=== PATIENT | male | born 1975 | race Two or more races ===

== ENCOUNTER 2021-08-08 12:39 | Emergency (ER) | payer OTHER ==
[~2021-08-08] VITALS: Ht 170.2 cm; Wt 102.1 kg
[2021-08-08] MEDS ORDERED: GLUMETZA1000 MG PO (13:14)
[2021-08-08] MEDS ORDERED: ZITHROMAX500 MG PO (14:43)
== END 2021-08-08 15:26 | disposition home or self-care (01) ==
LOC: ER 12:39
DX: E11.65 Type 2 diabetes mellitus with hyperglycemia (principal); Z79.4 Long term (current) use of insulin; A49.3 Mycoplasma infection, unspecified site; Z88.1 Allergy status to other antibiotic agents

== ENCOUNTER 2021-08-14 08:56 | Outpatient (CLI) | payer OTHER ==
[~2021-08-14 08:56] MED LIST: GLUMETZA1000 MG PO; ZITHROMAX500 MG PO
== END 2021-08-14 09:07 | disposition home or self-care (01) ==
LOC: RAD 08:56
DX: J18.9 Pneumonia, unspecified organism (principal)